=== PATIENT | female | born 1990 | race Caucasian/White ===

== ENCOUNTER 2016-04-26 12:50 | Emergency (ER) | payer MEDICAID ==
[~2016-04-26] VITALS: Ht 157.5 cm; Wt 110.5 kg
[~2016-04-26 12:50] MED LIST: PREN1TAB49
[2016-04-26 13:03] VITALS: Ht 157.5 cm; Wt 110.5 kg
[2016-04-26] MEDS ORDERED: ONDANSETRON 4 MG INJ IV STA (15:50)
[2016-04-26] MEDS ORDERED: morphine 4 MG/ML VIAL IV STA (15:50)
[2016-04-26 16:16] LABS: ADD SCAN DIFF NO
[2016-04-26 16:19] LABS: BASOPHILS % 0.1 % (0.0-2.0); EOSINOPHILS % 0.1 % (0.0-7.0); HEMATOCRIT 44.5 % (37.0-47.0); HEMOGLOBIN 14.4 g/dl (12.0-16.0); LYMPHOCYTES # 1.6 10^3/ul (0.8-2.9); LYMPHOCYTES % 11.4 % (15.0-51.0); MEAN CORPUSCULAR HGB CONC 32.4 g/dl (32.0-37.0); MEAN CORPUSCULAR VOLUME 83.3 fl (82.0-101.0); MONOCYTE # 0.6 10^3/ul (0.3-0.9); MONOCYTES % 4.3 % (0.0-11.0); NEUTROPHIL # 11.6 10^3/ul (1.6-7.5); NEUTROPHILS % 83.7 % (39.0-77.0); PLATELET COUNT 356 10^3/UL (140-415); RED BLOOD COUNT 5.34 10^6/ul (4.20-5.40); RED CELL DISTRIBUTION WIDTH 13.3 % (11.5-14.5); WHITE BLOOD COUNT 13.8 10^3/ul (4.8-10.8)
[2016-04-26 16:20] LABS: ADD UMIC YES; URINE BILIRUBIN (Dip) 2+ (NEGATIVE); URINE BLOOD (Dip) NEGATIVE (NEGATIVE); URINE COLOR DK. YELLOW (YELLOW); URINE GLUCOSE (Dip) NEGATIVE (NEGATIVE); URINE KETONES (Dip) TRACE (NEGATIVE); URINE LEUKOCYTE ESTERASE (Dip) NEGATIVE (NEGATIVE); URINE NITRITE (Dip) NEGATIVE (NEGATIVE); URINE TOTAL PROTEIN (Dip) TRACE (NEGATIVE); URINE UROBILINOGEN (Dip) 1.0 E.U./dL (0.1-1.0)
--- NOTE | 2016-04-26 16:28 | RADRPT ---
PROCEDURE: Abdominal Ultrasound (right upper quadrant). CLINICAL INDICATION: Abdominal pain TECHNIQUE: Multiple real-time longitudinal and transverse images of the right upper quadrant of th e abdomen were acquired utilizing a curved array transducer. Images were reviewed on a high-resoluti on PACS workstation. COMPARISON: None FINDINGS: The liver is normal in size and echogenicity. No focal masses are identified. There is no evidenc e of intra or extrahepatic ductal dilatation. The common bile duct measures 4.1 mm in diameter. No gallstones or gallbladder wall thickening is seen. The visualized portions of the pancreas are unremarkable with obscuration of the tail of the pancrea s. No free fluid is identified. There is no evidence of right hydronephrosis or renal calcification. The right kidney measures 9.8 cm in length. The visualized portions of the aorta and inferior vena cava are within normal limits. IMPRESSION: 1. Unremarkable right upper quadrant ultrasound. RPTAT: KK .James Mendiola MD, MD Date Time Electronically viewed and signed by .James Mendiola MD, on 04/26/2016 16:27 .B/
[2016-04-26 16:30] LABS: ALBUMIN 4.5 g/dl (3.3-4.9)
[2016-04-26 16:31] LABS: POTASSIUM 3.9 mmol/L (3.5-5.1)
[2016-04-26 16:33] LABS: BILIRUBIN,INDIRECT 0.8 mg/dl (0-1.1); BILIRUBIN,TOTAL 0.8 mg/dl (0.2-1.3); CREATININE 0.6 mg/dl (0.44-1.00)
[2016-04-26 16:34] LABS: ALBUMIN/GLOBULIN RATIO 1.15; TOTAL PROTEIN 8.4 g/dl (6.1-8.1)
[2016-04-26 16:37] LABS: ICTOTEST POSITIVE (NEGATIVE); SQUAMOUS EPITHELIAL CELL,UR MANY; URINE RBCS 0-2 /HPF (0)
[2016-04-26 16:38] LABS: BACTERIA,URINE MANY; MUCUS,URINE MANY
[2016-04-26] MEDS ORDERED: IBUP-1542 PO (18:13)
[2016-04-26] MEDS ORDERED: DICY10CA60 PO (18:22)
[2016-04-26 18:46] VITALS: BP 122/74; PULSE 70; RESP 16
--- NOTE | 2016-04-26 19:06 | ERD ---
ER Documentation Chief Complaint Date/Time DATE: 04/26/16 TIME: 18:35 Chief Complaint CAME IN VIA INTAKE DUE TO ABDOMINAL PAIN FOR 3 DAYS HPI 25-year-old female with no significant past medical history presents to the ED complaining of right upper quadrant abdominal pain that started 3 days ago. Reports that the pain is worse with food. States that the pain is worse with movement. Describes the pain as achy and rates it a 6 out of 10. Reports that she is nauseous but denies any vomiting, diarrhea. Reports that the pain radiates to her back in the front of her abdomen. Denies any fever, chills, abdominal pain, vomiting, diarrhea, chest pain, shortness of breath. ROS All systems reviewed and are negative except as per history of present illness. Medications Home Meds Active Scripts Dicyclomine Hcl* (Bentyl*) 10 Mg Capsule, 10 MG PO QID, #30 CAP Prov:JI CRUZ PA-C 04/26/16 Reported Medications Vits W-Ca,Fe,Fa(<1MG) () 1 Tab Tablet 09/29/09 Allergies Allergies: Coded Allergies: No Known Allergy (Verified Allergy, Unknown, 09/29/09) Uncoded Allergies: nka (Allergy, Mild, 09/29/09) PMhx/Soc Medical and Surgical Hx: pt denies Medical Hx, pt denies Surgical Hx Physical Exam Vitals Vital Signs Date Time Temp Pulse Resp B/P Pulse Ox O2 Delivery O2 Flow Rate FiO2 04/26/16 13:03 97.2 68 18 112/68 99 Physical Exam Const: [id number], well-nourished. In no acute distress. Head: Atraumatic, normocephalic Eyes: Normal Conjunctiva without injection. No purulent discharge. ENT: Normal external ear, nose. Moist oropharynx without tonsillar exudates. Non -erythematous pharynx. Uvula midline. No drooling. No trismus. Neck: No cervical midline tenderness. Full range of motion. No meningismus. No cervical lymphadenopathy. No JVD. Resp: Clear to auscultation bilaterally. No wheezing, rhonchi, rales, or crackles. No accessory muscle use. No retractions. Cardio: Regular rate and rhythm. No murmurs, rubs or gallops. Abd: Soft, right upper quadrant tenderness, non distended. Normal bowel sounds. No palpable masses. No rebound tenderness. No guarding. Negative McBurney' s point. Negative psoas sign. Negative obturator sign. Skin: No petechiae or rashes Back: No midline tenderness. No CVA tenderness. Ext: No cyanosis, or edema. Neur: Awake and alert. Normal gait. Normal coordination. Psych: Normal Mood and Affect Result Diagram: 04/26/16 1604 04/26/16 1604 Results 24 hrs Laboratory Tests Test 04/26/16 15:59 04/26/16 16:04 Urine Bacteria MANY Urine Bilirubin 2+ Urine Clarity SLIGHTLY CLOUDY Urine Color DK. YELLOW Urine Glucose NEGATIVE% Urine Hemoglobin NEGATIVE Urine Ictotest POSITIVE Urine Ketones TRACE Urine Leukocyte Esterase NEGATIVE Urine Microscopic RBC 0-2/HPF Urine Microscopic WBC 2-5/HPF Urine Mucus MANY Urine Nitrite NEGATIVE Urine Specific [place] 1.020 Urine Squamous Epithelial Cells MANY Urine Total Protein TRACE Urine Urobilinogen 1.0 E.U./dL Urine pH 6.0 Alanine Aminotransferase (ALT/SGPT) 315IU/L Albumin 4.5g/dl Albumin/Globulin Ratio 1.15 Alkaline Phosphatase 169IU/L Anion Gap 20 Aspartate Amino Transf (AST/SGOT) 242IU/L Basophils # 0.010^3/ul Basophils % 0.1% Blood Urea Nitrogen 15mg/dl Calcium Level 10.0mg/dl Carbon Dioxide Level 26mmol/L Chloride Level 105mmol/L Creatinine 0.60mg/dl Direct Bilirubin 0.00mg/dl Eosinophils # 0.010^3/ul Eosinophils % 0.1% Globulin 3.90g/dl Glucose Level 121mg/dl Hematocrit 44.5% Hemoglobin 14.4g/dl Indirect Bilirubin 0.8mg/dl Lipase 61U/L Lymphocytes # 1.610^3/ul Lymphocytes % 11.4% Mean Corpuscular Hemoglobin 27.0pg Mean Corpuscular Hemoglobin Concent 32.4g/dl Mean Corpuscular Volume 83.3fl Mean Platelet Volume 10.0fl Monocytes # 0.610^3/ul Monocytes % 4.3% Neutrophils # 11.610^3/ul Neutrophils % 83.7% Nucleated Red Blood Cells # 0.010^3/ul Nucleated Red Blood Cells % 0.0/100WBC Platelet Count 64931^3/UL Potassium Level 3.9mmol/L Red Blood Count 5.3410^6/ul Red Cell Distribution Width 13.3% Sodium Level 147mmol/L Total Bilirubin 0.8mg/dl Total Protein 8.4g/dl White Blood Count 13.810^3/ul Current Medications Medications (Trade) Dose Ordered Sig/Jairo Route PRN Reason Start Time Stop Time Status Last Admin Dose Admin Morphine Sulfate (morphine) 4 mg ONCE STAT IV 04/26/16 15:50 04/26/16 15:55 DC 04/26/16 16:05 Ondansetron HCl (Zofran Inj) 4 mg ONCE STAT IV 04/26/16 15:50 04/26/16 15:55 DC 04/26/16 16:05 Procedures/MDM This is a 25-year-old female with no significant past medical history presents the ED complaining of right upper quadrant pain that started 3 days ago. Patient is afebrile and nontoxic-appearing. Patient has normal vital signs. Patient was further worked up with CBC, CMP, lipase, UA, urine , Patient's pain and symptoms have improved after treatment with 4 mg IV morphine , 4 mg IV Zofran. CBC: No leukocytosis. No e/o of systemic infection. No e/o anemia. CMP: No e/o severe acidosis, alkalosis, renal failure, diabetic ketoacidosis, liver disease Lipase within normal limits. Urine: No leukocyte esterase, no nitrites, no hematuria. Urine : Negative PROCEDURE: Abdominal Ultrasound (right upper quadrant). CLINICAL INDICATION: Abdominal pain TECHNIQUE: Multiple real-time longitudinal and transverse images of the right upper quadrant of the abdomen were acquired utilizing a curved array transducer. Images were reviewed on a high-resolution PACS workstation. COMPARISON: None FINDINGS: The liver is normal in size and echogenicity. No focal masses are identified. There is no evidence of intra or extrahepatic ductal dilatation. The common bile duct measures 4.1 mm in diameter. No gallstones or gallbladder wall thickening is seen. The visualized portions of the pancreas are unremarkable with obscuration of the tail of the pancreas. No free fluid is identified. There is no evidence of right hydronephrosis or renal calcification. The right kidney measures 9.8 cm in length. The visualized portions of the aorta and inferior vena cava are within normal limits. IMPRESSION: 1. Unremarkable right upper quadrant ultrasound. Patient's pain could likely be due to a possible hepatitis however patient should get further evaluation and testing based on the elevated liver enzymes noted on her blood work today here in the ED. There is no cholecystitis, choledocholithiasis, noted on the gallbladder ultrasound. No leukocytosis noted. A differential diagnosis considered includes but is not limited to gastritis, GERD, peptic ulcer disease, cholecystitis, choledocholithiasis, cholangitis, pancreatitis, appendicitis, bowel obstruction, ileus, volvulus, nephrolithiasis, pyelonephritis, hepatitis, perforated viscus, diverticulitis, abdominal hernia, acute abdomen, mesenteric ischemia or other emergent conditions. This case discussed with my supervising physician, Dr. Sandrita goncalves who agreed with the management and discharge plan. Discharge medications: Bentyl Follow up with primary care physician in 1-2 days for referral to webbing inspector. Instructed patient to return to the ED sooner for any worsening symptoms. Patient's questions were answered. Patient understood and agreed with discharge plan. Patient discharged stable. Departure Diagnosis: Primary Impression: Abdominal pain Abdominal location: right upper quadrant Qualified Code: R10.11 - Right upper quadrant abdominal pain Condition: Stable Patient Instructions: Common Tests for Liver Disease, Abdominal Pain, Liver Panel Referrals: COMMUNITY CLINICS YOU HAVE RECEIVED A MEDICAL SCREENING EXAM AND THE RESULTS INDICATE THAT YOU DO NOT HAVE A CONDITION THAT REQUIRES URGENT TREATMENT IN THE EMERGENCY DEPARTMENT. FURTHER EVALUATION AND TREATMENT OF YOUR CONDITION CAN WAIT UNTIL YOU ARE SEEN IN YOUR DOCTORS OFFICE WITHIN THE NEXT 1-2 DAYS. IT IS YOUR RESPONSIBILITY TO MAKE AN APPOINTMENT FOR FOLOW-UP CARE. IF YOU HAVE A PRIMARY DOCTOR --you should call your primary doctor and schedule an appointment IF YOU DO NOT HAVE A PRIMARY DOCTOR YOU CAN CALL OUR PHYSICIAN REFERRAL HOTLINE AT IF YOU CAN NOT AFFORD TO SEE A PHYSICIAN YOU CAN CHOSE FROM THE FOLLOWING [id number] [address] [facility] [address] [facility] [address] [facility] [address] [facility] [address] [facility] [address] [facility]. [facility] YOU HAVE RECEIVED A MEDICAL SCREENING EXAM AND THE RESULTS INDICATE THAT YOU DO NOT HAVE A CONDITION THAT REQUIRES URGENT TREATMENT IN THE EMERGENCY DEPARTMENT. FURTHER EVALUATION AND TREATMENT OF YOUR CONDITION CAN WAIT UNTIL YOU ARE SEEN IN YOUR DOCTORS OFFICE WITHIN THE NEXT 1-2 DAYS. IT IS YOUR RESPONSIBILITY TO MAKE AN APPOINTMENT FOR FOLOW-UP CARE. IF YOU HAVE A PRIMARY DOCTOR --you should call your primary doctor and schedule and appointment IF YOU DO NOT HAVE A PRIMARY DOCTOR YOU CAN CALL OUR PHYSICIAN REFERRAL HOTLINE AT . IF YOU CAN NOT AFFORD TO SEE A PHYSICIAN YOU CAN CHOSE FROM THE FOLLOWING [facility] INSTITUTIONS: [facility] [address] [place] [address] [facility] [address] [place] [address] [facility] [address] [place] [address] [facility] URGENT CARE/SPECIALTIES Additional Instructions: Seguimiento con yuan mdico de natali para la evaluacin adicional para la posible hepatitis. Regrese a estas instalaciones si no se mejora tamica esperbamos o tamica le dijimos. JI CRUZ PA-C Apr 26, 2016 18:45
== END 2016-04-26 18:48 | disposition home or self-care (01) ==
LOC: FTE 12:50
DX: R10.11 Right upper quadrant pain (principal)
CPT/HCPCS: 36415; 76705; 80053; 81001; 83690; 85025; 96374; 96375; J2270; J2405; Z7502; 81003